=== PATIENT | female | born 1970 | race Caucasian/White ===

== ENCOUNTER 2017-10-04 15:12 | Inpatient (IN) | payer MEDICARE ==
[~2017-10-04] VITALS: Ht 162.6 cm; Wt 79.4 kg
[2017-10-04] MEDS ORDERED: ACETAMINOPHEN325 MG PO (16:37)
[2017-10-04] MEDS ORDERED: ASPIRIN81 MG PO (16:38)
[2017-10-04] MEDS ORDERED: PLAVIX75 MG PO (16:38)
[2017-10-04] MEDS ORDERED: CYCLOBENZAPRINE5 MG PO (16:40)
[2017-10-04] MEDS ORDERED: CYMBALTA60 MG PO (16:41)
[2017-10-04] MEDS ORDERED: NEURONTIN800 MG (16:42)
[2017-10-04] MEDS ORDERED: GLIPIZIDE10 MG PO (16:43)
[2017-10-04] MEDS ORDERED: LANTUS INSULIN10 ML SC (17:01)
[2017-10-04] MEDS ORDERED: NOVOLOG100 U/M1 SC (17:04)
[2017-10-04] MEDS ORDERED: KEPPRA500 MG PO (17:05)
[2017-10-04] MEDS ORDERED: LISINOPRIL10 MG PO (17:05)
[2017-10-04] MEDS ORDERED: ATIVAN2 MG PO (17:06)
[2017-10-04] MEDS ORDERED: REGLAN10 MG PO (17:08)
[2017-10-04] MEDS ORDERED: FLAGYL500 MG PO (17:09)
[2017-10-04] MEDS ORDERED: LOVAZA1 G PO (17:10)
[2017-10-04] MEDS ORDERED: PERCOCET 5-3251 TAB PO (17:11)
[2017-10-04] MEDS ORDERED: MIRALAX17 GM PO (17:11)
[2017-10-04] MEDS ORDERED: CRESTOR20 MG PO (17:12)
[2017-10-04] MEDS ORDERED: XARELTO20 MG PO (17:12)
[2017-10-04 18:32] VITALS: BP 134/74; BMI 30.1
--- NOTE | 2017-10-04 19:28 | NUR ---
resting in bed eyes open watching tv no s/s of distress noted.
[2017-10-04 20:40] VITALS: BP 129/64
--- NOTE | 2017-10-04 23:30 | NUR ---
resting in bed eyes closed breathing even and unlabored b/s active no s/s of distress at this time.
--- NOTE | 2017-10-04 23:31 | NUR ---
PATIENT C/O PAIN LEVEL OF 7/10. SHE WAS GIVEN PERCOCET 5/325 X2 TABS PO FOR HER PAIN ALONG WITH HS MEDS. ASSISTED PRIMARY NURSE WITH MEDICATIONS.
--- NOTE | 2017-10-05 00:15 | NUR ---
resting in bed prn pain medication given per mar, lop @ 2. no s/s of distress noted.
--- NOTE | 2017-10-05 04:52 | NUR ---
RESTING IN BED EYES CLOSED NO C/O PAIN OR DISCOMFORT AT THIS TIME.
[2017-10-05 05:46] LABS: BASOPHILS 0.3 % (0-2); EOSINOPHILS 1.6 % (0-7); HEMATOCRIT 28.9 % (36.0-48.0); IMMATURE GRANULOCYTES 0.3 % (0-5); LYMPHOCYTES 23.6 % (15-50); MCH 26.6 pg (26.0-34.0); MCHC 31.1 g/dL (31.0-37.0); MCV 85.5 fL (80.0-100.0); MEAN PLATELET VOLUME 10.7 fL (7.4-10.4); MONOCYTES 8.9 % (2-11); NEUTROPHILS 65.3 % (40-80); PLATELET COUNT 616 10x3/uL (130-400); RBC 3.38 10x6/uL (4.00-5.40); RDW 15.9 % (11.5-14.5); WBC 15.2 10x3/uL (4.8-10.8)
[2017-10-05 06:11] LABS: CALCIUM 8.3 mg/dL (8.5-10.1); CARBON DIOXIDE 32.1 mmol/L (21.0-32.0); CREATININE - SERUM 0.9 mg/dL (0.6-1.3); POTASSIUM - SERUM 4.1 mmol/L (3.5-5.1)
[2017-10-05 08:41] VITALS: BP 179/82
--- NOTE | 2017-10-05 09:15 | NUR ---
PT AM MEDS ADMINISTERED. PT REQ AND REC'D PRN PAIN MEDICATION AT THIS TIME. WCTM.
--- NOTE | 2017-10-05 14:20 | NUR ---
PT REQ AND REC'D PRN PAIN MEDICATION AT THIS TIME. WCTM.
--- NOTE | 2017-10-05 18:35 | NUR ---
PT RESTING IN BED, DENIES NEEDS. WCTM.
--- NOTE | 2017-10-05 19:30 | NUR ---
PT IN BED WITH HOB UP FOR COMFORT. WATCHING TV. NO O2. NO IV. RIGHT AKA-GEO. RIGHT GROIN INCISION-GEO, BORDERED GAUZE DRESSING APPLIED. FSBS ACHS. CONTACT ISOLATION. BED IN LOWEST POSITION AND CALL LIGHT WITHIN REACH.
[2017-10-05 20:53] VITALS: BP 150/69
--- NOTE | 2017-10-05 23:30 | NUR ---
PT LYING IN BED. RESTING QUIETLY. RESP. EVEN. BED IN LOWEST POSITION AND CALL LIGHT WITHIN REACH.
--- NOTE | 2017-10-06 01:20 | NUR ---
RESTING IN BED, SUPINE, EYES CLOSED. RESPIRING QUIETLY.
--- NOTE | 2017-10-06 04:24 | NUR ---
PT LYING IN BED WITH HOB UP FOR COMFORT. EYES CLOSED. RESPIRATIONS EVEN AND UNLABORED. BED IN LOWEST POSITION AND CALL LIGHT WITHIN REACH.
--- NOTE | 2017-10-06 08:00 | NUR ---
SHIFT ASSMT COMPLETED.RAKA UP ON PILLOW;GEO INTACT.
[2017-10-06 10:27] VITALS: BP 186/89
--- NOTE | 2017-10-06 12:00 | NUR ---
UP IN BED.TRINH THERAPY.CL IN REACH.HYPOGLYCEMIA PROTOCOL FOLLOWED.
--- NOTE | 2017-10-06 16:00 | NUR ---
RESTING QUIETLY.CL IN REACH.
--- NOTE | 2017-10-06 19:30 | NUR ---
PT. IN BED WITH HOB UP FOR COMFORT. PT. AWAKENS EASILY UPON MY ENTRANCE. ASSESSMENT COMPLETED. NO VOICED NEEDS AND PT. KNOWS HER PAIN MEDICATION IS Q 4 HOURS. INFORMED PT. NEXT PAIN MED DUE AROUND 0 AND PT. STATED SHE UNDERSTOOD. CALL LIGHT WITHIN REACH.
[2017-10-06 20:15] VITALS: BP 135/74
--- NOTE | 2017-10-06 23:21 | NUR ---
PT. IN BED WITH HOB UP FOR COMFORT WITH EYES CLOSED AND RESP. EVEN. CALL LIGHT WITHIN REACH.
--- NOTE | 2017-10-07 03:12 | NUR ---
PT. IN BED WITH HOB UP FOR COMFORT WITH EYES CLOSED AND RESP. EVEN. CALL LIGHT WITHIN REACH.
--- NOTE | 2017-10-07 08:00 | NUR ---
shift assmt completed.
[2017-10-07 09:04] VITALS: BP 169/97
--- NOTE | 2017-10-07 20:10 | NUR ---
PT. IN BED WITH HOB UP FOR COMFORT AND RLE STUMP UP ON PILLOW. NO VOICED NEEDS AND HER CALL LIGHT IS WITHIN REACH.
--- NOTE | 2017-10-07 20:10 | NUR ---
REST IN BED AND WATCH TV.
[2017-10-07 21:05] VITALS: BP 137/75
--- NOTE | 2017-10-08 00:47 | NUR ---
REST IN BED, CALL LIGHT IN REACH.
--- NOTE | 2017-10-08 01:00 | NUR ---
CARE ASSUMED FROM QUYNH MEZA. PT. IN BED WITH HOB UP FOR COMFORT WITH EYES CLOSED AND RESP. EVEN. CALL LIGHT WITHIN REACH.
--- NOTE | 2017-10-08 03:20 | NUR ---
PT. IN BED WITH HOB UP AND LE'S ELEVATED UP ON PILLOWS FOR COMFORT. PT. REQUESTING PAIN MED AT THIS TIME. NO OTHER VOICED NEEDS AND SHE HAS HER CALL LIGHT WITHIN REACH.
[2017-10-08 06:03] LABS: BASOPHILS 0.4 % (0-2); EOSINOPHILS 1.4 % (0-7); HEMOGLOBIN 8.3 g/dL (12-16); IMMATURE GRANULOCYTES 0.4 % (0-5); MCH 26.7 pg (26.0-34.0); MCHC 30.7 g/dL (31.0-37.0); MCV 86.8 fL (80.0-100.0); MEAN PLATELET VOLUME 10.1 fL (7.4-10.4); MONOCYTES 8.3 % (2-11); NEUTROPHILS 75.5 % (40-80); PLATELET COUNT 677 10x3/uL (130-400); RBC 3.11 10x6/uL (4.00-5.40); RDW 15.8 % (11.5-14.5); WBC 16.8 10x3/uL (4.8-10.8)
[2017-10-08 06:23] LABS: CALCIUM 8.4 mg/dL (8.5-10.1); CARBON DIOXIDE 31.8 mmol/L (21.0-32.0); CHLORIDE - SERUM 102 mmol/L (98-107); CREATININE - SERUM 0.8 mg/dL (0.6-1.3); SODIUM 140 mmol/L (136-145); UREA NITROGEN 13 mg/dL (7-18); eGFR NON AFRICAN AMERICAN 81 mL/min (90-120)
[2017-10-08 06:31] LABS: CALC OSMOLALITY 277 mosm/kg (275-300); GLUCOSE 84 mg/dL (74-106)
[2017-10-08 06:47] LABS: HEMOGLOBIN A1C 8.6 % (4.8-6.0)
[2017-10-08 09:27] VITALS: BP 149/81
--- NOTE | 2017-10-08 12:07 | RHP ---
PATIENT: DWAYNE CALHOUN MEDICAL RECORD: [id number] ACCOUNT: [id number] LOCATION:[facility]1115 : 66 ADMISSION DATE: 10/04/17 REHABILITATION HISTORY AND PHYSICAL EXAMINATION POST ADMISSION PHYSICIAN EXAMINATION Post-Admission Physical Examination and History and Physical ADMITTING DIAGNOSIS: Peripheral vascular disease resulting in a unilateral lower extremity ficyd-coe-vfwz amputation. 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 She was transferred from [facility] with acute left middle cerebral artery stroke with embolic disease to bilateral lower extremity and acute right ischemic limb pain. She underwent a right iliac thin and profunda thrombectomy and patch angioplasty and bypass of the distal profunda on 09/20/2017 and subsequent right vgsdv-plw-qmjh amputation on 09/24. She received 2 units of blood for symptomatic anemia and improvement in her H&H was noted. Her white blood cell count has been elevated; however, it is trending down. She was found to have C. diff, continued on his antibiotics including Flagyl and p.o. vancomycin, to be completed on 10/05/2017, has not been having any bowel movements, but now is having some formed stools. She is tolerating a diabetic diet with no nausea and vomiting. She completed a 5 days course of econazole for yeast infection, pain has been controlled with p.o. and IV antibiotic medication, but she is transitioning to oral medications at that time. She is on Keppra and will be discharged on Holter monitor to be worn for 30 days when she goes home, she is to participate with therapy, and is motivated to return home and hopefully get back to her prior level of functioning and acute rehab has been ordered by her MD. COMORBIDITIES: Include hypertension, left ischemic stroke, coronary artery disease, seizures, C. diff, diabetes, pheochromocytoma, peripheral arterial disease, sleep apnea, and constipation. PAST MEDICAL HISTORY: Significant for coronary artery disease, constipation, insulin-dependent diabetes mellitus, Budd-Chiari malformation, hypertension, peripheral arterial disease, pheochromocytoma, and sleep apnea. PAST SURGICAL HISTORY: Includes adrenalectomy, cardiac stents, colectomy, hysterectomy, occipital decompression, oophorectomy, and vascular surgery. ALLERGIES: PROMETHAZINE. CURRENT MEDICATIONS: Include insulin, she is on 20 units q.a.c. She is on Xarelto 20 mg daily, Glucotrol-XL 10 mg before meals, Cymbalta 60 mg daily, Plavix 75 mg daily, aspirin chewable 81 mg daily, Crestor 20 mg at bedtime, polyethylene glycol 17 grams in 8 ounces of water daily, Percocet 5/325 one to two tabs q.4 hours p.r.n., Flagyl 500 mg q.i.d., some Reglan 10 mg q.a.c. and at bedtime, Ativan 2 mg b.i.d. p.r.n., Zestril 20 mg b.i.d., Keppra 500 mg b.i.d., Lantus 45 units b.i.d., Neurontin 900 mg t.i.d., Flexeril 5 mg t.i.d., and Tylenol 325 mg q.4 hours p.r.n. HISTORY AND PHYSICAL [id number] DWAYNE CALHOUN HABITS: No current alcohol or tobacco use. FAMILY HISTORY: Noncontributory. SOCIAL HISTORY: The patient hopes to return back home and get back to her prior level of functioning. REVIEW OF SYSTEMS: GENERAL: Does complain of a little weakness. HEENT: He denies cold, cough, or congestion. CARDIOVASCULAR: Denies chest pain. PHYSICAL EXAMINATION: VITAL SIGNS: Stable, afebrile. GENERAL: A much older than stated age white female in no distress. HEENT: Normocephalic and atraumatic. Mucosa moist. NECK: Supple, no lymphadenopathy. LUNGS: Clear at this time. HEART: Regular rate and rhythm. ABDOMEN: Benign. EXTREMITIES: Consistent with an vryat-axt-rezm amputation. NEUROLOGIC: Seems intact. LABORATORY DATA: Her white count is 15.2, H&H of 9 and 28.9, and platelet count was noted to be 616. Sodium is 137, potassium 4.1, BUN and creatinine of 12 and 0.9, blood sugar is noted to be 149. ASSESSMENT: This is a 46-year-old female patient who presents to the rehab with a working diagnosis of a unilateral yhoqw-pzf-jvmi amputation associated with peripheral vascular disease. The patient has potential to make improvement. We instituted the following multidisciplinary therapies including to, but not limited to physical, occupational, respiratory, speech, nutritional services, prosthetics, and orthotics. Given her complex condition and risk for more complications, rehabilitation services cannot be provided at a low level of care such as a alf facility. PLAN: 1. Admit to [facility] rehab for intensive inpatient therapy to include the following disciplines: A. Physical therapy to improve gait, all transfer skills and bed mobility to a modified independent level. B. Occupational therapy to improve activities of daily living to a modified independent level. C. Case management to assist with discharge planning and placement options. D. Nutrition to assist with nutritional needs. E. Rehabilitation nursing to assist in monitoring the patient's underlying medical conditions and to assist with any type of bowel or bladder management. 2. The patient's current medications and medical care will be continued. 3. The patient will be placed on standard fall precautions. 4. The patient's estimated length of stay is approximately 7-10 days. 5. We will go ahead and get prosthetics involved in this patient also and will follow up on Sunday. TRANSINT:[id number] Voice Confirmation ID: [id number] DOCUMENT ID: [id number] HISTORY AND PHYSICAL [id number] DWAYNE CALHOUN notes whether there has been none or any medical/functional change since admission: - NO CHANGE SINCE PRESCREEN [place]ILLE attests patient continues to be appropriate for IRF: - CONTINUES TO BE APPROPRIATE TOÑA GONZALEZ MD at 1207 CC: [id number] DICTATION DATE: 10/05/17820 INFORMATION TECHNOLOGY ASSISTANT: 10/05/17 1009 ADM IN [facility] [address] [place] [address]
--- NOTE | 2017-10-08 19:20 | NUR ---
PM ROUNDS MADE, UMESH XIE IN ROOM WITH PT AT THIS TIME
--- NOTE | 2017-10-08 20:33 | NUR ---
PT AWAKE, ASSESSMENT PER FLOW SHEET, INC ON (R) STUMP WITH GEO CDI WITH NO DRAINAGE NOTED, INC IN RIGHT GROIN WITH DRESSING CDI WITH NO DRAINAGE NOTED, PT REPORTS FLATUS, BM AND VOIDING WITH NO DIFFICULTY, ADM 2100 MEDS PER MD ORDERS, WITH FRESH H20, PT STATES "I'LL BE READY FOR MY PAIN PILL AT 9:00", INFORMED PT THAT I WILL CHECK TO SEE WHEN IT IS DUE AND I WILL ADM IT THEN AND I WILL THEN DO GROIN DRESSING CHANGE AND CLEAN RIGHT STUMP, PT VERBALIZES UNDERSTANDING, DENIES FURTHER NEEDS AT THIS TIME, BED IN LOW POSITION, SIDE RAILS X 3, CALL LIGHT IN REACH, BED ALARM ON AND WORKING PROPERLY
--- NOTE | 2017-10-08 21:31 | NUR ---
PT AWAKE, ADM PAIN MED PO PER MD ORDERS, SEE EMAR, RIGHT STUMP CLEANED AND BETADINE APPLIED PER MD ORDERS, DRESSING REMOVED ON RIGHT GROIN, NO DRAINAGE NOTED, BETADINE AND CLEAN DRESSING APPLIED, PT UP TO BEDSIDE COMMODE, VOIDED LARGE AMOUNT OF URINE, PT BACK TO BED, DENIES FURTHER NEEDS, BED IN LOW POSITION, SIDE RAILS X 3, CALL LIGHT IN REACH, BED ALARM ON AND WORKING PROPERLY
--- NOTE | 2017-10-08 22:30 | NUR ---
PT RESTING WITH EYES CLOSED, RESP QUIET, NO DISTRESS NOTED, LEFT UNDISTURBED AT THIS TIME
[2017-10-08 22:57] VITALS: BP 147/75
--- NOTE | 2017-10-09 00:05 | NUR ---
PT RESTING WITH EYES CLOSED, RESP QUIET, NO DISTRESS NOTED, LEFT UNDISTURBED AT THIS TIME
--- NOTE | 2017-10-09 02:05 | NUR ---
PT RESTING WITH EYES CLOSED, RESP QUIET, NO DISTRESS NOTED, LEFT UNDISTURBED AT THIS TIME
--- NOTE | 2017-10-09 04:23 | NUR ---
PT TEST CONDUCTOR LIGHT, PT UP TO BEDSIDE COMMODE, VOIDED LARGE AMOUNT AND HAD LARGE DARK FORMED TO LOOSE BM, ASSISTED PT WITH NADIA CARE, PT BACK TO BED, C/O PAIN, ADM PERCOCET PO PER MD ORDERS, SEE EMAR, WITH FRESH H2O, PT DENIES FURTHER NEEDS
--- NOTE | 2017-10-09 06:49 | NUR ---
PT RESTING WITH EYES CLOSED, AROUSES TO SOFT VERBAL STIMULATION, FSBS 101, ADM 0600 MED PO PER MD ORDERS, SEE EMAR, PT DENIES NEEDS
--- NOTE | 2017-10-09 08:45 | NUR ---
PT AM MEDS ADMINISTERED. PT DENIES NEEDS AT THIS TIME. WCTM.
[2017-10-09 09:54] VITALS: BP 128/69
--- NOTE | 2017-10-09 10:29 | NUR ---
Nutrition Follow Up: Pt was asleep at the time of RD visit. Interview deferred. Spoke with nursing who reported that pt is not drinking Ananda despite encouragement to do so. Pt is eating 57% meal avg on a diabetic diet. She is receiving Ananda BID. +BM 10/09/17. Meds and labs reviewed. Rec continue current diet. Will d/c Ananda. RD following.
--- NOTE | 2017-10-09 12:40 | NUR ---
PT REQ AND REC'D PRN PAIN MEDICATION AT THIS TIME. WCTM.
--- NOTE | 2017-10-09 16:49 | NUR ---
PT REQ AND REC'D PRN PAIN MEDICATION. WCTM.
--- NOTE | 2017-10-09 18:20 | NUR ---
PT RESTING IN BED, DENIES NEEDS. WCTM.
[2017-10-09 20:00] VITALS: BP 131/72
--- NOTE | 2017-10-09 20:00 | NUR ---
PT IS RESTING IN BED WITH EYES OPEN. ALERT AND ORIENTED X 3. VOICED COMPLAINT OF RIGHT LEG PAIN LEVEL OF 5 AT THIS TIME. WILL MEDICATE JASSI. GEO ARE CDI TO RIGHT LEG STUMP. NO DRAINAGE NOTED. CONTACT PRECAUTIONS OBSERVED WITH PT. SR'S ARE UP X 3 IN BED. CALL LIGHT AND BEDSIDE TABLE ARE WITHIN EASY REACH.
--- NOTE | 2017-10-09 22:00 | NUR ---
PT OFFERED A BATH. SHE REFUSED STATING SHE DIDNT WANT TO WAKE UP THIS LATE, AND WILL TRY TO TAKE ONE TOMORROW.
--- NOTE | 2017-10-09 22:00 | NUR ---
PT IS RESTING IN BED WATCHING TV. NO NEEDS VOICED.
--- NOTE | 2017-10-10 01:45 | NUR ---
RESTING IN BED WITH EYES CLOSED.
--- NOTE | 2017-10-10 03:15 | NUR ---
PT USED CALL LIGHT TO SAY SHE HAD BEEN INC. OF URINE. BED LINENS CHANGED, AND PARTIAL BED BATH GIVEN.
[2017-10-10 06:13] LABS: BASOPHILS 0.3 % (0-2); EOSINOPHILS 1.3 % (0-7); HEMATOCRIT 24.2 % (36.0-48.0); IMMATURE GRANULOCYTES 0.2 % (0-5); LYMPHOCYTES 19.3 % (15-50); MCV 87.1 fL (80.0-100.0); MEAN PLATELET VOLUME 9.5 fL (7.4-10.4); MONOCYTES 5.1 % (2-11); NEUTROPHILS 73.8 % (40-80); PLATELET COUNT 706 10x3/uL (130-400); RBC 2.78 10x6/uL (4.00-5.40); RDW 15.6 % (11.5-14.5); WBC 12.3 10x3/uL (4.8-10.8)
[2017-10-10 06:19] LABS: HEMOGLOBIN 7.5 g/dL (12-16)
[2017-10-10 06:34] LABS: ANION GAP 9.5 mmol/L (8-16); CALCIUM 8.1 mg/dL (8.5-10.1); CARBON DIOXIDE 30.4 mmol/L (21.0-32.0); CREATININE - SERUM 0.9 mg/dL (0.6-1.3); POTASSIUM - SERUM 3.9 mmol/L (3.5-5.1)
--- NOTE | 2017-10-10 08:00 | NUR ---
SHIFT ASSMT COMPLETED.
[2017-10-10 08:19] VITALS: BP 154/82
--- NOTE | 2017-10-10 14:00 | NUR ---
WILL CONTNUE TO MONITOR.
--- NOTE | 2017-10-10 16:25 | NUR ---
CARE TEAM MEETING: PATIENT PROGRESSING IN THERAEPY. LASHELL DISCHARGE DATE IS 10/19/17. WILL CONTINUE TO FOLLOW WITH PATIENT.
--- NOTE | 2017-10-10 19:55 | NUR ---
PT. IN BED WITH HOB UP FOR COMFORT AND IS WATCHING TV. ASSESSMENT COMPLETED. NO VOICED NEEDS AT THIS TIME AND HER CALL LIGHT IS WITHIN REACH.
[2017-10-10 20:15] VITALS: BP 156/79
--- NOTE | 2017-10-10 22:26 | NUR ---
FSBS 56. GAVE PT. 2 OJ'S WITH 2 PACKETS OF SUGAR AND 2 ORANGE SHERBERT CUPS AT PT'S REQUEST. WILL RECHECK BLOOD SUGAR LATER.
--- NOTE | 2017-10-10 23:48 | NUR ---
PT. IN BED WITH HOB UP FOR COMFORT AND IS STILL WATCHING TV. PT. DENIES ANY NEEDS AND FEELS LIKE HER BLOOD SUGAR IS STILL GOOD. CALL LIGHT WITHIN REACH.
--- NOTE | 2017-10-11 00:12 | NUR ---
PT'S FSBS RECHECK WAS 110.
--- NOTE | 2017-10-11 03:28 | NUR ---
PT. IN BED WITH HOB UP FOR COMFORT AND IS LYING ON HER LEFT SIDE. EYES CLOSED AND RESP. EVEN WITH HER CALL LIGHT WITHIN REACH.
--- NOTE | 2017-10-11 08:00 | NUR ---
SHIFT ASSMT COMPLETED.DENIES NEEDS.
[2017-10-11 08:27] VITALS: BP 174/82
--- NOTE | 2017-10-11 12:00 | NUR ---
EATING LUNCH.CL IN REACH.
--- NOTE | 2017-10-11 16:00 | NUR ---
AT BEDSIDE.CL IN REACH.
--- NOTE | 2017-10-11 19:25 | NUR ---
PT. IN BED WITH HOB UP FOR COMFORT AND HAS TISSUE PAPERS STUCK UP HER LEFT NOSTRIL DUE TO NOSE BLEED. PT. INSTRUCTED BY YON HUNG RN TO REMOVE TISSUE PAPER IT WILL DISLODGE ANY CLOT THAT IS TRYING TO FORM AND TO ONLY WIPE NOSE IF BLOOD STARTS TO DRIP OUT OF NOSE. PT. STATED SHE UNDERSTOOD. ASSESSMENT COMPLETED. NO VOICED NEEDS AT THIS TIME AND HER CALL LIGHT IS WITHIN REACH.
[2017-10-11 21:14] VITALS: BP 134/74
--- NOTE | 2017-10-11 23:08 | NUR ---
PT. IN BED WITH HOB UP FOR COMFORT AND IS WATCHING TV. CALL LIGHT WITHIN REACH SHE HAS NO NEEDS AT THIS TIME.
--- NOTE | 2017-10-12 03:08 | NUR ---
PT. IN BED WITH HOB UP FOR COMFORT WITH EYES CLOSED AND RESP. EVEN. CALL LIGHT WITHIN REACH.
[2017-10-12 07:08] LABS: BASOPHILS 0.6 % (0-2); EOSINOPHILS 2.9 % (0-7); HEMATOCRIT 26.4 % (36.0-48.0); IMMATURE GRANULOCYTES 0.2 % (0-5); LYMPHOCYTES 31.5 % (15-50); MCH 26.7 pg (26.0-34.0); MCHC 30.3 g/dL (31.0-37.0); MEAN PLATELET VOLUME 9.7 fL (7.4-10.4); MONOCYTES 7.1 % (2-11); NEUTROPHILS 57.7 % (40-80); PLATELET COUNT 822 10x3/uL (130-400); RDW 15.9 % (11.5-14.5); WBC 10.6 10x3/uL (4.8-10.8)
--- NOTE | 2017-10-12 07:36 | NUR ---
RESTING QUIETLY IN BED. CALL LIGHT IN REACH. BED IN LOWEST POSITION.
[2017-10-12 07:39] LABS: ANION GAP 14.4 mmol/L (8-16); CALCIUM 8.3 mg/dL (8.5-10.1); CREATININE - SERUM 1.1 mg/dL (0.6-1.3); POTASSIUM - SERUM 4.4 mmol/L (3.5-5.1)
[2017-10-12 08:02] VITALS: BP 138/78
--- NOTE | 2017-10-12 13:31 | NUR ---
SITTING UP IN BED. IN ROOM WITH PT. HE DENIES INCREASED PAIN.
--- NOTE | 2017-10-12 17:03 | NUR ---
SITTING UP IN BED WATCHING TV. DENIES INCREASED PAIN TO RLE. FELT "WEIRD" EARLIER, FSBS TAKEN AND WAS 87, JUICE GIVEN, WHEN RECHECKED FSBS WAS 107. SHE IS STILL REFUSING MOST OF HER INSULIN. DID AGREE TO 5 UNITS OF FAST ACTING HUMALOG THIS EVENING AND BLOOD GLUCOSE DROPED FROM 198 TO 87 EVEN AFTER SHE ATE TACO'S, BEANS AND RICE.
--- NOTE | 2017-10-12 19:49 | NUR ---
RECIEVED UP IN BED WITH HOB ELEVATED. EYES OPEN AND TV ON. PLEASANT AND TALKATIVE. DENIES ANY PIAN. CALL LIGHT AND OVERBED TABLE IN REACH.
[2017-10-12 20:50] VITALS: BP 110/59
--- NOTE | 2017-10-12 23:22 | NUR ---
RESTING IN BED WITH EYES CLOSED. NO S/S OF DISTRESS OBSERVED. CALL LIGHT IN REACH.
--- NOTE | 2017-10-13 02:47 | NUR ---
RESTING IN BED WITH EYES CLOSED. NO S/S OF DISATRESS OBSERVED. CALL LIGHT IN REACH.
--- NOTE | 2017-10-13 06:41 | NUR ---
REFUSES AM INSULIN STATES "IT WILL BOTTOM ME OUT". INCONTINENT EPISODES THIS AM WITH COMPLETE BED CHANGE. STATED SHE DREAMED SHE WAS ON THE TOILET UNTIL SHE GOT COLD.
--- NOTE | 2017-10-13 06:43 | NUR ---
REQUESTED PAIN MEDICATION FOR STUMP. MED GIVEN PER ORDERS. GROI CLEANED AND SWABBED WITH BETA DINE PER ORDERS. NO REDNESS OR SWELLLING TO SITE. GEO INTACT.
[2017-10-13 08:06] VITALS: BP 124/70
--- NOTE | 2017-10-13 12:36 | NUR ---
SITTING UP EATING LUNCH. DENIES NEEDS. CALL LIGHT IN REACH
--- NOTE | 2017-10-13 16:05 | NUR ---
RESTING QUIETLY IN BED. CALL LIGHT IN REACH. BED IN LOWEST POSITION
[2017-10-13 19:48] VITALS: BP 125/74
--- NOTE | 2017-10-13 19:48 | NUR ---
RECIEVED SITTING UP IN BED EATING TAKE OUT FOOD. PLEASANT AND TALKATIVE. DENIES ANY PAIN AT THIS TIME. CALL LIGHT AND OVERBED TABLE IN REACH.
--- NOTE | 2017-10-13 21:57 | NUR ---
UP IN BED WITH EYES OPEN AND TV ON. PLEASANT AND COOPERATIVE. ASKED WHEN HER PAIN MEDICATION WAS DUE. DENIES ANY PAIN. LEFT AKA WITH STPLES INTACT. NO REDNESS OR SWELLING OBSERVED. CALL LIGHT AND OVERBED TABLE IN REACH.
--- NOTE | 2017-10-14 00:56 | NUR ---
RESTING IN BED WITH EYES CLOSED. NO S/S OF DISTRESSOBSERVED. CALL LIGHT IN REACH.
--- NOTE | 2017-10-14 04:03 | NUR ---
RESTING IN BED WITH EYES CLOSED. NO S/S OF DISTRESS OBSERVED. CALL LIGHT IN REACH.
--- NOTE | 2017-10-14 06:25 | NUR ---
FSBS 180 THIS AM. REFUSES SLIDING SCALE. EDUCATED ON INSULIN AND ADVERSE EFFECTS OF NOT TAKING IT. UNABLE TO REDIRECT.
--- NOTE | 2017-10-14 09:57 | NUR ---
SITTING UP IN BED WATCHING TV. DENIES INCREASED PAIN. CALL LIGHT IN REACH
[2017-10-14 12:13] VITALS: BP 124/74
--- NOTE | 2017-10-14 12:19 | NUR ---
SITTING UP IN BED EATING LUNCH. HAS BEEN UP IN W/C THIS MORNING.
[2017-10-14 19:43] VITALS: BP 137/72
--- NOTE | 2017-10-14 21:10 | NUR ---
WHEN ANSWERING CALL LIGHT FROM NURSES STATION PT STATED "I FELL AND I'M ON THE FLOOR". THI NURSE RUSHED INTO THE ROOM TO FIND PT ON THE FLOOR SITTING IN UPRIGHT POSITION BETWEEN THE CHAIR SHE WAS SITTING IN AND BEDSIDE COMMODE. RIGHT AKA SITE BLEEDING . ALL GEO INTACT. ASSISTED PT TO BED. CLEANED AREA AND PLACED DRESSING TO SITE. PT CALLED SPOUSE (JOSÉ) AND DR. GONZALEZ NOTIFIED WITH NO NEW ORDERS.
--- NOTE | 2017-10-14 22:40 | NUR ---
REQUESTED FSBS BE CHECKED. RESULTS 50. ASYMPTOMATIC AT THAT TIME.PUDDING AND MILK GIVEN AND THEN SANDWICH GIVEN. WILL RECHECK.
--- NOTE | 2017-10-14 23:54 | NUR ---
RECHECKED FSBS AND RESULTS 108. STATED SHE FEELS FINE.
--- NOTE | 2017-10-15 00:10 | NUR ---
RESTING IN BED WITH EYES CLOSED. NO S/S OF DISTRESS OBSERVED. CALL LIGHT IN REACH.
--- NOTE | 2017-10-15 01:05 | NUR ---
RECIEVED UP IN BED WITH EYES OPEN AND TV ON. C/O INCISIONAL PAIN TO AKA. REQUESTING PAIN MEDICATION. MEDS GIVEN PER ORDERS. CALL LIGHT AND OVERBED TABLE IN REACH.
--- NOTE | 2017-10-15 03:26 | NUR ---
RESTING IN BED WITH EYES CLOSED AT THIS TIME. PRESSURE DRESSING IN PLACE ON AKA SITE. NO DRAINAGE OR REDNESS OBSERVED TO SITE. CALL LIGHT AND OVERBED TABLE IN REACH.
[2017-10-15 06:28] LABS: BASOPHILS 0.3 % (0-2); EOSINOPHILS 1.2 % (0-7); HEMATOCRIT 26.8 % (36.0-48.0); HEMOGLOBIN 8.1 g/dL (12-16); IMMATURE GRANULOCYTES 0.3 % (0-5); LYMPHOCYTES 26.5 % (15-50); MCH 26.2 pg (26.0-34.0); MCHC 30.2 g/dL (31.0-37.0); MCV 86.7 fL (80.0-100.0); MEAN PLATELET VOLUME 9.8 fL (7.4-10.4); NEUTROPHILS 64.7 % (40-80); RBC 3.09 10x6/uL (4.00-5.40); RDW 15.7 % (11.5-14.5); WBC 10.7 10x3/uL (4.8-10.8)
[2017-10-15 06:36] LABS: ANION GAP 14.6 mmol/L (8-16); CARBON DIOXIDE 24.8 mmol/L (21.0-32.0); CREATININE - SERUM 1.1 mg/dL (0.6-1.3); POTASSIUM - SERUM 4.4 mmol/L (3.5-5.1)
--- NOTE | 2017-10-15 06:44 | NUR ---
REFUSED INSULIN THIS AM.
[2017-10-15 06:57] LABS: PLATELET COUNT 1045 10x3/uL (130-400)
[2017-10-15 07:30] VITALS: BP 116/68
--- NOTE | 2017-10-15 12:30 | NUR ---
SITTING UP IN BED EATING LUNCH. DSG REPLACED TO RIGHT STUMP. SHE HAS ONE SMALL TRICKLE OF BLOOD FROM ONE STAPLE SITE. SHE STATES BLEEDING STARTED AFTER SHE FELL LAST NIGHT.
--- NOTE | 2017-10-15 18:37 | NUR ---
RESTING QUIETLY IN BED. CALL LIGHT IN REACH. BED IN LOWEST POSITION
--- NOTE | 2017-10-15 20:20 | NUR ---
RECIEVED UP IN BED WITH EYES OPEN AND TV ON. PLEASANT AND TALKATIVE. DENIES ANY PAIN OR NEEDS.
[2017-10-15 20:41] VITALS: BP 127/72
--- NOTE | 2017-10-16 08:00 | NUR ---
SHIFT ASSMT COMPLETED.DENIES NEEDS.CL IN REACH.
[2017-10-16 08:01] VITALS: BP 135/65
--- NOTE | 2017-10-16 12:00 | NUR ---
SITTING UP IN CHAIR EATING LUNCH.CL IN REACH.
--- NOTE | 2017-10-16 14:18 | NUR ---
Nutrition Follow Up: Pt was in therapy at the time of RD visit. Interview deferred. Pt is eating 76% meal avg on a diabetic diet. +BM 10/15/17. Labs reviewed - Glucose elevated. Meds noted. Rec continue current diet. RD following.
--- NOTE | 2017-10-16 14:52 | NUR ---
ORDER FAXED TO [facility] FOR WHEELCHAIR TO BE DELIVERED TO PATIENT PRIOR TO DISCHARGE. WILL CONTINUE TO FOLLOW WITH PATIENT
--- NOTE | 2017-10-16 19:50 | NUR ---
PT. IN BED WITH HOB UP FOR COMFORT AND IS WATCHING TV. ASSESSMENT COMPLETED. NO VOICED NEEDS AT THIS TIME. BANDAGE TO RIGHT STUMP IS C/D/I. RIGHT GROIN DRESSING ALSO C/D/I. CALL LIGHT IS WITHIN REACH FOR ANY ASSISTANCE.
[2017-10-16 21:45] VITALS: BP 116/72
--- NOTE | 2017-10-16 23:19 | NUR ---
PT. IN BED WITH HOB UP FOR COMFORT AND IS STILL WATCHING TV. NO VOICED NEEDS AT THIS TIME AND HER CALL LIGHT IS WITHIN REACH.
[2017-10-17] VITALS (16 sets, daily range): BP systolic 116–144; BP diastolic 58–85
--- NOTE | 2017-10-17 01:56 | NUR ---
PT IN BED WITH HOB UP FOR COMFORT. RESITNG QUIETLY. BED IN LOWEST POSIITON AND CALL LIGHT WITHIN REACH.
--- NOTE | 2017-10-17 04:23 | NUR ---
PT IN BED WITH HOB UP FOR COMFORT. EYES CLOSED. CHEST RISING AND FALLING. BED IN LOWEST POSITION AND CALL LIGHT WITHIN REACH. GOYO ALARM ON.
[2017-10-17 07:08] LABS: BASOPHILS 0.4 % (0-2); EOSINOPHILS 1.8 % (0-7); HEMATOCRIT 20.5 % (36.0-48.0); IMMATURE GRANULOCYTES 0.2 % (0-5); LYMPHOCYTES 27.5 % (15-50); MCH 26.8 pg (26.0-34.0); MCHC 30.7 g/dL (31.0-37.0); MCV 87.2 fL (80.0-100.0); MEAN PLATELET VOLUME 9.3 fL (7.4-10.4); MONOCYTES 11.8 % (2-11); NEUTROPHILS 58.3 % (40-80); RBC 2.35 10x6/uL (4.00-5.40); RDW 15.9 % (11.5-14.5); WBC 9.8 10x3/uL (4.8-10.8)
[2017-10-17 07:18] LABS: HEMOGLOBIN 6.3 g/dL (12-16); PLATELET COUNT 1071 10x3/uL (130-400)
[2017-10-17 07:22] LABS: ANION GAP 12.8 mmol/L (8-16); CALCIUM 8.2 mg/dL (8.5-10.1); CARBON DIOXIDE 26.1 mmol/L (21.0-32.0); POTASSIUM - SERUM 4.9 mmol/L (3.5-5.1)
--- NOTE | 2017-10-17 08:00 | NUR ---
SHIFT ASSMT COMPLETED.DENIES NEEDS.RIGHT AKA OPEN TO AIR.GEO INTACT.SOME DRY DRAINAGE NOTED ON SHEETS,BREAKFAST GIVEN.
--- NOTE | 2017-10-17 12:00 | NUR ---
IN BED FOR LUNCH.CL IN REACH.
--- NOTE | 2017-10-17 15:15 | NUR ---
CARE TEAM MEETING: PATIENT PROGRESSING WELL IN THERAPY . TENATIVE DISCHARGE DATE IS 10/19/17. WILL CONITNUE TO FOLLOW WITH PATIENT
--- NOTE | 2017-10-17 17:35 | NUR ---
1ST UNIT OF PRBC'S STARTED.
--- NOTE | 2017-10-17 19:15 | NUR ---
PT IN BED WITH HOB UP FOR COMFORT. WATCHING TV. VITALS TAKEN. PT RECEIVEING 1UNIT OF PRBC'S THROUGH LEFT WRIST 20 G. CONTACT ISOLATION FOR CDIFF RIGHT AKA. FSBS AC. NO O2. BED IN LOWEST POSITION AND CALL LIGHT WITHIN REACH.
--- NOTE | 2017-10-17 21:00 | NUR ---
SECOND UNIT OF PRBC'S STARTED. WILL CONTINUE TO KALE PT.
--- NOTE | 2017-10-17 21:00 | NUR ---
VERIFIED AND HUNG 2ND UNIT PRBC'S TO RUN @ 125ML/HR RATE PER PUMP VIA 20GA LEFT WRIST S/L.
--- NOTE | 2017-10-17 23:46 | NUR ---
P TIN BED WITH HOB UP FOR COMOFRT. WATCHING TV. RECEIVING 2UNIT OF PRBC'S. BED IN LOWEST POSITION AND CALL LIGHT WITHIN REACH.
--- NOTE | 2017-10-17 23:49 | NUR ---
BLOOD DONE INFUSING. NS NOW INFUSING.
--- NOTE | 2017-10-18 00:46 | NUR ---
PT STATES SHE DOES NOT WANT A SHOWER. PT IS LEFT WRIST IS NOW SL.
[2017-10-18 00:49] VITALS: BP 147/82
--- NOTE | 2017-10-18 04:07 | NUR ---
ASSISTED PT TO BSC AND BACK TO BED.
--- NOTE | 2017-10-18 07:55 | NUR ---
SITTING UP IN BED EATING BREAKFAST. ALERT AND ORIENTED X4. DENIES ANY NEEDS OR PAIN. NO S/SX OF ACUTE DISTRESS NOTED. CALL LIGHT AND PERSONAL ITEMS, BED LOW AND ALARM ON, SR X2. WILL CONTINUE TO MONITOR
[2017-10-18 08:18] VITALS: BP 140/80
--- NOTE | 2017-10-18 09:06 | NUR ---
ADMINISTERED MORNING MEDS WHOLE WITHOUT DIFFICULTY. C/O RT STUMP AND SIDE PAIN 8/10 PERCOCET 10MG ADMINISTERED PER REQUEST. NO OTHER CONCERNS VOICED. CALL LIGHT AND WATER WITHIN REACH, BED LOW, ALARM ON. WILL CONTINUE TO MONITOR
[2017-10-18 09:30] LABS: BASOPHILS 0.2 % (0-2); EOSINOPHILS 1.3 % (0-7); IMMATURE GRANULOCYTES 0.2 % (0-5); LYMPHOCYTES 23.6 % (15-50); MCH 28.4 pg (26.0-34.0); MCHC 32.2 g/dL (31.0-37.0); MCV 88.3 fL (80.0-100.0); MEAN PLATELET VOLUME 9.6 fL (7.4-10.4); MONOCYTES 9.6 % (2-11); NEUTROPHILS 65.1 % (40-80); PLATELET COUNT 954 10x3/uL (130-400)
[2017-10-18 09:32] LABS: HEMATOCRIT 30.1 % (36.0-48.0); HEMOGLOBIN 9.7 g/dL (12-16); RBC 3.41 10x6/uL (4.00-5.40)
[2017-10-18 09:55] LABS: ANION GAP 12.3 mmol/L (8-16); CALCIUM 9.1 mg/dL (8.5-10.1); CREATININE - SERUM 1.1 mg/dL (0.6-1.3); POTASSIUM - SERUM 5.3 mmol/L (3.5-5.1)
--- NOTE | 2017-10-18 10:22 | NUR ---
CALLED DR. BRAR TO REVIEW NEW LABS. DR. BRAR ADVISED TO ORDER NIFEREX FORTE 1 TABLET BID D/T LOW IRON.
--- NOTE | 2017-10-18 12:12 | NUR ---
SITTING UP IN BED WATCHING TV. DENIES ANY NEEDS. CALL LIGHT WITHIN REACH, BED LOW AND ALARM ON. WILL CONTINUE TO MONITOR
--- NOTE | 2017-10-18 14:22 | NUR ---
IN THERAPY GYM WITH [facility]. NO S/SX OF ACUTE DISTRESS. WILL CONTINUE TO MONITOR
[2017-10-18 15:42] VITALS: Ht 162.6 cm; Wt 79.4 kg
--- NOTE | 2017-10-18 17:40 | NUR ---
EATING SUPPER IN ROOM
--- NOTE | 2017-10-18 17:59 | NUR ---
SITTING UP IN BED WATCHING TV AND VISITING WITH . DENIES ANY NEEDS. CALL LIGHT WITHIN REACH, BED LOW AND ALARM ON, SR X2. WILL CONTINUE TO MONITOR
[2017-10-18 19:00] VITALS: BP 132/76
--- NOTE | 2017-10-18 19:10 | NUR ---
PT IN BED WITH HOB UP FOR COMFORT. WATCHING TV. NO O2. LT WRIST SL. RIGHT STUMP INCISION WITH GEO. RIGHT GROIN INCISION WITH GEO AND DRESSING C/D/I. FSBS AC. CONTACT ISOLATION. BED IN LOWEST POSITION AND CALL LIGHT IN REACH.
--- NOTE | 2017-10-18 20:00 | NUR ---
IN BED, AWAKE. NO COMPLAINTS AT THIS TIME.
--- NOTE | 2017-10-19 | NUR ---
PT IN BED WITH HOB UP FOR COMFORT. WATCHING TV. BED IN LOWEST POSITION AND CALL LIGHT WITHIN REACH.
--- NOTE | 2017-10-19 04:00 | NUR ---
PT IN BED WITH HOB UP FOR COMFORT. EYES CLOSED. CHEST RISING AND FALLING. BED IN LOWEST POSITION AND CALL LIGHT WITHIN REACH.
[2017-10-19 06:32] LABS: HEMATOCRIT 32.5 % (36.0-48.0); HEMOGLOBIN 10.5 g/dL (12-16); LYMPHOCYTES 27.6 % (15-50); MCH 27.7 pg (26.0-34.0); MCHC 32.3 g/dL (31.0-37.0); MCV 85.8 fL (80.0-100.0); MEAN PLATELET VOLUME 9.2 fL (7.4-10.4); NEUTROPHILS 60.6 % (40-80); RBC 3.79 10x6/uL (4.00-5.40); RDW 14.8 % (11.5-14.5); WBC 9.5 10x3/uL (4.8-10.8)
[2017-10-19 06:33] LABS: PLATELET COUNT 1060 10x3/uL (130-400)
[2017-10-19 06:37] LABS: ANION GAP 13.3 mmol/L (8-16); CALCIUM 9.2 mg/dL (8.5-10.1); CARBON DIOXIDE 26.8 mmol/L (21.0-32.0)
[2017-10-19 06:39] LABS: POTASSIUM - SERUM 4.1 mmol/L (3.5-5.1)
[2017-10-19] MEDS ORDERED: PERCOCET 10/3251 TA1 PO (08:22)
[2017-10-19 09:02] VITALS: BP 138/78
--- NOTE | 2017-10-19 09:50 | NUR ---
PATIENT DISCHARGING HOME WITH FAMILY. [facility] WILL PROVIDE THERAPY AT HOME. Elpidio'LUTHER DELIVERED A WHEELCHAIR TO PATIENT. VIGNESH PONCE APN 10/29/17 @ 10:00, DR. BRAR 11/07/17 @ 2:30. PATIENT CHOICE FORM FOR HOME HEALTH AND [facility] FORM SIGNED, EXPLAINED AND FILED IN CHART.ORDERS HAVE BEEN FAXED WITH CONFORMATION RECIEVED
--- NOTE | 2017-10-19 10:43 | NUR ---
D/C HOME WITH ALL PERSONAL BELONGINGS. MEDS CALLED INTO [facility] IN [place]. [phone]. SHE REFUSED TO HAVE HER GEO REMOVED BY STAFF STATING SHE WANTED MD TO D/C GEO IN THEIR OFFICE. [facility] DELIVERED HER W/C ALREADY AND PT LEFT FLOOR IN IT. REVIEWED HER MEDS, D/C INSTRUCTIONS, HOW TO MONITOR FOR S/S INFECTION ON STUMP AND RT GROIN. PT AND STATED UNDERSTANDING OF TEACHING AND DENIES QUESTIONS.
--- NOTE | 2017-12-05 13:18 | DS ---
PATIENT:DWAYNE CALHOUN :66 MEDICAL RECORD: [id number] DISCHARGE SUMMARY ADMISSION DATE: 10/04/17 DISCHARGE DATE: 10/19/17 This is a discharge dated 10/19/2017 from inpatient rehab. PRIMARY DIAGNOSIS: Decreased functional ability and ability to provide activities of daily living status post [id number] amputation, unilateral. SECONDARY DIAGNOSES: 1. Peripheral vascular disease. 2. Coronary artery disease. 3. Diabetes. 4. Hypertension. 5. Seizure disorder. 6. Obstructive sleep apnea. 7. Ischemic cerebrovascular accident. 8. Diverticulitis. 9. Hypokalemia. 10. Clostridium difficile colitis. 11. Thrombocytosis. 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 13. Pheochromocytoma. 14. Anemia with acute blood loss. 15. Hyperlipidemia. 16. Constipation. CONSULTS THIS HOSPITALIZATION: Hem/onc with Dr. Amezquita. HOSPITAL COURSE: Full H&P is located elsewhere on the chart on this 46-year-old female who was admitted to inpatient rehab for physical therapy and occupational therapy to improve gait, transfer skills, bed mobility, and activities of daily living to a modified independent level. She was evaluated by PT and OT and their plans of care were followed. She required long-term care for observation and assessment and medication administration. Labs were monitored. Electrolytes were managed by protocol. She did receive 2 units of packed red blood cells for an H&H of 7.5 and 24.2. She required wound care and monitoring of stump incisions. She remained on appropriate home medications. Fingerstick blood sugars were monitored throughout her hospital stay with appropriate adjustment in medications as needed. She completed vancomycin and Flagyl for treatment of C. difficile colitis. She was seen by prosthetics for artificial leg fitting. She was cooperative with therapies, progressing towards goals. Case management was involved for discharge planning. She was considered stable for discharge on 10/19/2017. DISCHARGE MEDICATIONS: As per discharge medication reconciliation. DISCHARGE DISPOSITION: The patient is discharged home. She will continue her current diet and level of activity. She will have [facility] for PT and OT. She received a wheelchair from [facility]. She will follow up with primary care and specialist as directed. At least 30 minutes was spent in this discharge activity. TRANSINT:[id number] Voice Confirmation ID: [id number] DOCUMENT ID: [id number] DISCHARGE SUMMARY REPORT [id number] DWAYNE CALHOUN Dictated By: ZENA BLANTON I have interviewed/examined the above patient and agree with these documented findings. TOÑA GONZALEZ MD at 1318 at 0939 CC: [id number] DICTATION DATE: 12/01/17 1209 ANNOUNCER: 12/01/17 1450 DIS IN 10/19/17 [place] [id number] [place] [id number]
== END 2017-10-19 12:00 | disposition home health service (06) | DRG 300 ==
LOC: D.REHAB 15:12
PROVIDERS: Internal Medicine Hematology & Oncology; ADMIT Emergency Medicine
DX: I70.203 Unspecified atherosclerosis of native arteries of extremities, bilateral legs (principal); A04.72 Enterocolitis due to Clostridium difficile, not specified as recurrent; I25.10 Atherosclerotic heart disease of native coronary artery without angina pectoris; I10 Essential (primary) hypertension; E11.9 Type 2 diabetes mellitus without complications; R56.9 Unspecified convulsions; G47.30 Sleep apnea, unspecified; D35.00 Benign neoplasm of unspecified adrenal gland; Z89.611 Acquired absence of right leg above knee; D50.0 Iron deficiency anemia secondary to blood loss (chronic); K59.00 Constipation, unspecified